=== PATIENT | male | born 1960 | race Caucasian/White ===

== ENCOUNTER 2016-12-28 22:45 | Emergency (ER) | payer SELFPAY ==
[~2016-12-28] VITALS: Ht 167.6 cm; Wt 64.5 kg
[~2016-12-28 22:45] MED LIST: CLC150 PO; LRT5 PO; OXYC-57 PO; PENI-82 PO
[2016-12-28 22:48] VITALS: TEMP 36.5; Ht 167.6 cm; Wt 64.5 kg
[2016-12-28] MEDS ORDERED: OXYMETAZOLINE HCL 0.05% NA SPR 15 ML BTL ONE (23:00)
[2016-12-28 23:24] LABS: BASO % 0.3 %; BASO ABS # 0.07 K/uL (0-0.2); COMPLETE YES; EOS % 0.9 %; HEMATOCRIT 42.4 % (42-52); IG% 0.4 %; LYMPH % 19.3 %; MEAN CELL VOLUME 93.8 fL (80-100); MEAN CORPUSCULAR HEMOGLOBIN 32.7 pg (25-34); MEAN CORPUSCULAR HGB CONC 34.9 g/dl (32-36); MEAN PLATELET VOLUME 11.3 fL (7.4-10.4); NEUT % 70.1 %; PLATELET COUNT 273 K/uL (130-400); RED BLOOD COUNT 4.52 M/uL (4.7-6.1); WHITE BLOOD COUNT 20.68 K/uL (4.8-10.8)
[2016-12-28] MEDS ORDERED: MoRPHine SULFATE 4 MG/ML 1 ML CARP\\VIAL IV STA (23:37)
[2016-12-28] MEDS ORDERED: ONDANSETRON INJ 2 MG/ML 2 ML VIAL IV STA (23:37)
[2016-12-28] MEDS ORDERED: AMPICILLIN/SULBACTAM SOD INJ 3,000 MG in SODIUM CHLORIDE 0.9% 100ML 100 ML IV ONE (23:45)
[2016-12-28 23:57] LABS: BUN/CREATININE RATIO 13.4 (10-20); CALCIUM 9.1 mg/dl (8.5-10.1); CREATININE 1.08 mg/dl (0.60-1.40); POTASSIUM 3.2 mmol/L (3.5-5.1)
[2016-12-29] MEDS ORDERED: OXYCODONE IR HOME PACK PO ONE
[2016-12-29] MEDS ORDERED: AMOXICIL/CLAVU 875MG HOME PACK PO ONE
[2016-12-29] MEDS ORDERED: ONDANSETRON HOME PACK 4MG OD TAB PO ONE
[2016-12-29] MEDS ORDERED: POTASSIUM CHLORIDE 10 MEQ TABCR PO STA (00:25)
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
[2016-12-29] MEDS ORDERED: AMOX875T PO (00:32)
[2016-12-29] MEDS ORDERED: OXYC1TAB3 PO (00:32)
[2016-12-29] MEDS ORDERED: ONDA4TAB10 SL (00:32)
[2016-12-29 00:50] VITALS: BP 134/88; PULSE 46; O2SAT 92
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
--- NOTE | 2016-12-29 07:11 | DIAGNOSTIC IMAGING REPORT ---
CT SCAN OF THE BRAIN WITHOUT IV CONTRAST CLINICAL HISTORY: Head injury. COMPARISON STUDY: No priors. TECHNIQUE: Unenhanced axial CT scan of the brain is performed from the vertex to the skull base. A dose lowering technique was utilized adhering to the principles of ALARA. FINDINGS: Brain parenchyma: The brain parenchyma is normal in appearance. There is no hemorrhage, mass effect, or evidence of acute territorial ischemia by CT criteria. Bear-white matter is preserved. No extra-axial fluid collection is seen. Ventricles, sulci, cisterns: Normal in configuration. Intracranial vasculature: The visualized intracranial vasculature at the skull base is normal in appearance. Calvarium: There is no depressed calvarial fracture. There are comminuted fractures involving the right zygomatic arch, as well as the anterior and posterior [place] of the right maxillary antrum. Soft tissues: There is left temporal scalp injury with foci of subcutaneous gas, likely related to sinus fracture. Sinuses and mastoids: There is blood present within the right maxillary antrum. The remaining visualized paranasal sinuses are clear. The mastoid air cells are well pneumatized. Orbits: There is fracture involving the lateral wall of the right orbit, and also likely the orbital floor. The left bony orbit is grossly intact. IMPRESSION: 1. There is no hemorrhage, mass effect, or evidence of acute territorial ischemia by CT criteria. 2. No depressed calvarial fracture is seen. 3. Right zygomatic arch, right maxillary sinus, and right orbital fractures as above. See report of facial bone CT performed concurrently for detailed facial bone findings. Electronically signed by: Dhruv Zamora M.D. 12/29/2016 7:09 AM Dictated Date/Time: 12/29/2016 7:06 AM
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
--- NOTE | 2016-12-29 07:33 | DIAGNOSTIC IMAGING REPORT ---
CHEST 2 VIEWS ROUTINE HISTORY: epistaxis, vomit blood COMPARISON: Chest 09/20/2012. FINDINGS: Mild diffuse interstitial thickening. Emphysema. No pleural effusions. No pneumothorax. The heart is normal in size. No focal lung consolidations. No evidence for pulmonary edema. IMPRESSION: 1. Mild diffuse interstitial thickening which is likely chronic. 2. Emphysema. Electronically signed by: Veto Driver M.D. 12/29/2016 7:32 AM Dictated Date/Time: 12/29/2016 7:27 AM
== END 2016-12-29 00:50 | disposition home or self-care (01) ==
LOC: C.EDB 22:46 → C.EDA 12-29 00:50
DX: S02.40EA Zygomatic fracture, right side, initial encounter for closed fracture (principal); S02.81XA Fracture of other specified skull and facial bones, right side, initial encounter for closed fracture; S09.90XA Unspecified injury of head, initial encounter; R04.0 Epistaxis; E87.6 Hypokalemia; R73.9 Hyperglycemia, unspecified; W22.8XXA Striking against or struck by other objects, initial encounter; Y93.72 Activity, wrestling; F17.200 Nicotine dependence, unspecified, uncomplicated; Z72.89 Other problems related to lifestyle